=== PATIENT | female | born 1960 | race Caucasian/White ===

== ENCOUNTER 2019-08-01 14:16 | Emergency (ER) | payer MEDICARE ==
[~2019-08-01 14:16] MED LIST: ACET-2123 PO; CALC1TAB2 PO; CEPH500C2 PO; DIPH25 PO; DIPH30C TP; DIVA-76 PO; DOCU-116 PO; FESO8TAB PO; FURO20TA4 PO; GUAIFDM PO; IBUP-2784 PO; LACT10SO9 PO; LEVO75TA10 PO; LIDO240G3 TP; MICO150A TP; OLAN15TA18 PO; PRAV40TA3 PO; PROP15DR OP; VENL150T3 PO
[2019-08-01] MEDS ORDERED: OCTYL 2-CYANOACRYLATE 1 EACH TP ONE (15:30)
[2019-08-01] MEDS ORDERED: LIDOCAINE HCL 1% 20 ML VIAL ONE (15:53)
== END 2019-08-01 16:44 | disposition home or self-care (01) ==
LOC: EDH 14:16
DX: S01.311A Laceration without foreign body of right ear, initial encounter (principal); F32.9 Major depressive disorder, single episode, unspecified; G40.909 Epilepsy, unspecified, not intractable, without status epilepticus; Z88.8 Allergy status to other drugs, medicaments and biological substances; W18.39XA Other fall on same level, initial encounter; Y93.89 Activity, other specified; Y92.89 Other specified places as the place of occurrence of the external cause; Y99.8 Other external cause status
CPT/HCPCS: 12052; 70450; 70486; 72125

== ENCOUNTER 2020-02-09 | Inpatient (IN) | payer MEDICARE | END 2020-02-22 17:30 | DRG 871 | PROVIDERS: ADMIT Family Medicine | PROC: 0DH63UZ Insertion of Feeding Device into Stomach, Percutaneous Approach (ICD-10-PCS; principal; 2020-02-19) ==

== ENCOUNTER → 2021-10-06 | Outpatient (CLI) | payer MEDICARE ==
[~2021-10-06] MED LIST changes: -ACET-2123 PO; +ACET-66 PO; +ASCO500T20 PO; +BISM262O28 PO; +BUSP15 PO; +CALC-1158 PO; -CALC1TAB2 PO; -CEPH500C2 PO; +CIPR250T6 PO; +COLL30OI TP; +DIATR MEGLU/DIATRIZOATE SODIUM 30 ML BOTTLE ONE; +EYEL1TOW2 TP; +FERR-82 PO; +FESO4TAB PO; -FESO8TAB PO; +FURO-152 PO; -FURO20TA4 PO; +GENT30OI2 TP; +GUAIF10 PO; -GUAIFDM PO; +IBUP-1556 PO; -IBUP-2784 PO; +LACT10SO75 PO; -LACT10SO9 PO; +LEVE-43 PO; +LEVE500L PO; -LIDO240G3 TP; +MAG-156 PO; +MERO1VIA23 IV; -MICO150A TP; +MOM30 PO; -OLAN15TA18 PO; +OLAN20TA35 PO; +PHEN177S29 PO; -PROP15DR OP; +PROT480P PO; +RIVA20TA PO; +TRAM50TA4 PO; -VENL150T3 PO; +VENL75CA97 PO; +ZINC220C6 PO
== END | disposition home or self-care (01) ==
LOC: RAH 11:48
PROVIDERS: ATTEND Internal Medicine Gastroenterology
DX: Z43.1 Encounter for attention to gastrostomy (principal)
CPT/HCPCS: 74018; Q9963